=== PATIENT | female | born 2005 | race Caucasian/White ===

== ENCOUNTER 2025-03-04 13:04 | Outpatient (AMB) | payer BC, SELFPAY ==
--- NOTE | 2025-03-04 13:21 | A.OFFPC_ITS ---
Vital Signs 03/04/25 13:28 Height 5 ft 5.35 in Weight 193 lb 4 oz BMI 31.8 BP 106/68 Blood Pressure Location Rt brachial Position Sitting Respiration 14 Pulse 92 Pulse Source Pulse Oximeter Temp 98.5 F Temp Source Oral Pulse Oximetry (%) 99 Oxygen Delivery Method Room Air Intake Visit Reasons: [employer] // Requesting PE Intake Note: New patient visit. 23 weeks Radio Message Router Required: No Allergies No Known Allergies Allergy (Verified 03/04/25 13:22) Medication List - Last Reconciled 03/04/25 by Ghislaine Baker PA-C No Known Home Meds Tobacco use date assessed: 03/04/25 Dental Screening Dental Screen Date: 03/04/25 Did you have a dental visit in the last 12 months?: Yes Did you have a dental problem in the last 6 months where you did not have access to dental care?: No Was dental information given to patient?: Patient has dentist HPI [employer] // Requesting PE HPI Details Patient is a 19-year-old female who presents today to establish care and for a physical exam. She is currently 23 weeks . She is having a baby girl in May. She is excited. This is her 1st . Overall doing well but at times gets leg cramps at night. This has happened twice. She believes she is well hydrated. She is following closely with her OBGYN. She works as a high school business teacher and states that she is not going to work anymore following her delivery. [facility] Surgical History (Updated 03/04/25 @ 13:33 by Marianne Melton CMA) No pertinent past surgical history Family History (Updated 03/04/25 @ 13:34 by Marianne Melton CMA) Father Diabetes Social History (Updated 03/04/25 @ 13:35 by Marianne Melton CMA) Housing: House Alcohol intake: never Patient Tobacco Use Status: Never used Tobacco e-Cigarette/Vaping Use: Never Used Second Hand Smoke Exposure: No service: No Current occupational status: employed Current occupation: teacher Current occupational exposures/hazards: No Cognitive needs: No Hearing needs: No Vision needs: No Questionnaire PHQ-9 Over the last 2 weeks, how often have you been bothered by any of the following problems? 1. Little interest or pleasure in doing things: not at all 2. Feeling down, depressed, or hopeless: not at all 3. Trouble falling or staying asleep, or sleeping too much: not at all 4. Feeling tired or having little energy: not at all 5. Poor appetite or overeating: not at all 6. Feeling bad about yourself - or that you are a failure or have let yourself or your family down: not at all 7. Trouble concentrating on things, such as reading the newspaper or watching television: not at all 8. Moving or speaking so slowly that other people could have noticed. Or the opposite - being so fidgety or restless that you have been moving around a lot more than usual: not at all 9. Thoughts that you would be better off or of hurting yourself in some way: not at all Total score: 0 Depression Screening Interpretation: Negative Depression Screening Done: Yes 76336 - PHQ-9 Billing: Yes Source: Developed by Drs. Josh Last, Darby Hallman, Ramy Zamora and colleagues, with an educational summer from [employer]. Thrive Questionnaire Date Thrive assessed: 03/04/25 I am a: Patient What is your living situation today?: I have a steady place to live Within the past 12 months, did the food you bought not last and you didn't have the money to get more?: Never true Within the past 12 months, did you worry whether your food would run out before you got money to buy more?: Never true Do you have trouble paying for medicines?: No Do you have trouble getting transportation to medical appointments?: No Do you have trouble paying your heating and electricity bill?: No Do you have trouble taking care of your child, family member or friend?: No Do you have trouble with day-to-day activities such as bathing, preparing meals, shopping, managing finances, etc.?: No Are you currently unemployed and looking for a job?: No Are you interested in more education?: No Please select the resources that you would like help with: None Currently or been in a relationship where the following occur: No concerns reported THRIVE Score: 0 AUDIT C Alcohol Use Questionnaire (AUDIT-C) 1. How often do you have a drink containing alcohol?: Never 3. How often do you have six or more drinks on one occasion?: Never Total Score: 0 EUN-7 AMB Questionnaire EUN-7 Date EUN - 7 assessed: 03/04/25 Feeling nervous, anxious, or on edge: 0 = Not at all Not being able to stop or control worryin = Not at all Worrying too much about different things: 0 = Not at all Trouble relaxin = Not at all Being so restless that it is hard to sit still: 0 = Not at all Becoming easily annoyed or irritable: 0 = Not at all Feeling afraid as if something awful might happen: 0 = Not at all Total EUN-7 score (0-4 normal; 5-9 mild; 10-14 moderate; 15-21 severe): 0 Source: Developed by Drs. Josh Last, Darby Hallman, Ramy Zamora and colleagues, with an educational summer from [employer]. EUN-7 Assessment Billing EUN-7 Assessment Tool: EUN-7 Assessment 19955 Physical exam (Primary Care) Vital Signs: Last Vital Signs Temp 98.5 F 03/04/25 13:28 Pulse 92 03/04/25 13:28 Resp 14 03/04/25 13:28 BP 106/68 03/04/25 13:28 Pulse Ox 99 03/04/25 13:28 Oxygen Delivery Method Room Air 03/04/25 13:28 BMI result Body Mass Index 31.8 Tobacco/Smoking Status: Tobacco use Status Tobacco use date assessed 03/04/25 03/04/25 13:35 Patient Tobacco Use Status Never used Tobacco 03/04/25 13:35 e-Cigarette/Vaping Use Never Used 03/04/25 13:35 PHQ-9: PHQ-9 Score PHQ-9: Total score 0 03/04/25 13:43 Depression Screening Interpretation: Negative Thrive Assessment: Date of Thrive Assessment Date Thrive assessed 03/04/25 03/04/25 13:26 Currently or been in a relationship where the following occur: No concerns reported Const Orientation/consciousness: patient oriented x3 HENMT Ears: hearing grossly normal bilaterally and TM's normal bilaterally General nose exam: No nasal polyps present Face and sinus: Yes sinuses nontender Mouth: Normal oral and palatal mucosa present Eyes Pupils: Equal, round and reactive pupils present EOM: EOMs intact bilaterally Neck Neck: Yes full ROM and Yes no lymphadenopathy Thyroid: Thyroid normal Chest Chest palpation & inspection: normal inspection of the chest Resp Auscultation: clear to auscultation bilaterally Cardio Rate: regular rate Rhythm: regular rhythm Heart sounds: S1 normal heart sound present and S2 normal heart sound present Peripheral pulses: Peripheral pulses 2+ throughout GI Other: nontender Rectal Exam - Female: deferred General: Yes no CVA tenderness Back/Spine/Pelvis Other: Nontender Back: no CVA tenderness Skin General skin exam: no rashes or lesions noted Neuro General: patient oriented x3, gait normal, CN's II-XI intact bilaterally and deep tendon reflexes 2+ bilaterally Cranial nerves: Yes Equal, round and reactive pupils present Motor exam (neuro): 5/5 motor strength present throughout Sensory Exam: double simultaneous stimulation for sensation normal Coordination: [id number] test normal and Romberg test negative Extrem General: Yes normal to inspection and Yes full ROM Psych Affect: normal affect Attitude: cooperative Thought process: Normal thought process present Thought content: Normal thought content present Insight: Good insight present (Psych) Judgement: Good judgement present (Psych) Coding Level of Care Code New Pt Prev Care 18-39yr(93508 Diagnoses Encounter for routine history and physical examination Z00.00 Leg cramps in O99.891; R25.2 Additional Codes EUN-7 Assessment Billing - EUN-7 Assessment Tool: EUN-7 Assessment 37144 ([id number]) PHQ-9 - 27696 - PHQ-9 Billing: Yes ([id number]) Assessment & Plan Assessment & Plan (1) Encounter for routine history and physical examination: Code(s): Z00.00 - Encounter for general adult medical examination without abnormal findings Plan: Health maintenance reviewed. Labs ordered. (2) Leg cramps in : Code(s): O99.891 - Other specified diseases and conditions complicating ; R25.2 - Cramp and spasm Category: Medical Plan: Labs ordered. I have encouraged her to stretch, light exercise, make sure she is well hydrated. We did discuss topical magnesium. She will let me know if no improvement or if anything worsens or changes. Orders: Orders Lipid Panel Today O99.891 - Other specified diseases and conditions complicatin g , R25.2 - Cramp and spasm, Z00.00 - Encounter for general adult medical examination without abnormal findings, Z13.220 - Encounter for screening for lipoid disorders Magnesium Today O99.891 - Other specified diseases and conditions complicating , R25.2 - Cramp and spasm, Z00.00 - Encounter for general adult medical examination without abnormal findings, Z13.220 - Encounter for screening for lipoid disorders Comprehensive Met. Panel Today O99.891 - Other specified diseases and conditions complicating , R25.2 - Cramp and spasm, Z00.00 - Encounter for general adult medical examination without abnormal findings, Z13.220 - Encounter for screening for lipoid disorders
[2025-03-04 13:28] VITALS: BP 106/68; PULSE 92; RESP 14; TEMP 36.9; O2SAT 99; BMI 31.8
== END 2025-03-04 13:57 | disposition home or self-care (01) ==
LOC: HO.HMCFM 13:05
PROVIDERS: PCP Physician Assistant; Visit Provider Physician Assistant
DX: Z00.00 Encounter for general adult medical examination without abnormal findings (principal); O99.891 Other specified diseases and conditions complicating pregnancy; R25.2 Cramp and spasm

== ENCOUNTER → 2025-03-04 13:04 | Outpatient (BNVA) | payer BC, SELFPAY | PROVIDERS: PCP Physician Assistant; Visit Provider Physician Assistant | DX: Z00.00 Encounter for general adult medical examination without abnormal findings (principal); O99.891 Other specified diseases and conditions complicating pregnancy; R25.2 Cramp and spasm; Z3A.23 23 weeks gestation of pregnancy | CPT/HCPCS: 96127 ==

== ENCOUNTER 2025-03-09 08:58 | Outpatient (REF) | payer BC, SELFPAY ==
[2025-03-09 12:05] LABS: Alanine Aminotransferase 21 U/L (0-31); Albumin Level 3.9 g/dL (3.5-5.0); Alkaline Phosphatase 59 U/L (39-117); Anion Gap 10 (12-20); Aspartate Amino Transferase 22 U/L (5-31); Bilirubin Total 0.5 mg/dL (0.0-1.0); Blood Urea Nitrogen 7 mg/dL (9-16); Calcium 8.8 mg/dL (8.4-10.2); Carbon Dioxide 24 mmol/L (22-29); Chloride 107 mmol/L (96-108); Cholesterol 220 mg/dL (<200); Estimated Glomerular Filt Rate > 60; Glucose Random 101 mg/dL (60-115); HDL Cholesterol 75 mg/dL (>40); LDL Cholesterol Calculated 127 mg/dL (<100); Magnesium 1.8 mg/dL (1.6-2.6); Sodium 137 mmol/L (135-145); Triglycerides 93 mg/dL (<150)
== END 2025-03-09 08:59 | disposition home or self-care (01) ==
LOC: HO.WFDLDS 08:58
PROVIDERS: Visit Provider Physician Assistant
DX: Z00.00 Encounter for general adult medical examination without abnormal findings (principal); I10 Essential (primary) hypertension; Z13.220 Encounter for screening for lipoid disorders; R25.2 Cramp and spasm; O99.891 Other specified diseases and conditions complicating pregnancy
CPT/HCPCS: 36415; 80053; 80061; 83735